=== PATIENT | female | born 1955 | race Caucasian/White ===

== ENCOUNTER → 2022-06-21 | Outpatient (CLI) | payer MEDICARE | LOC: RAD 11:54 | PROVIDERS: ATTEND Family Medicine | DX: R94.31 Abnormal electrocardiogram [ECG] [EKG] (principal) | CPT/HCPCS: 93306 ==

== ENCOUNTER 2022-07-26 09:35 | Observation (INO) | payer MEDICARE ==
[2022-07-25 08:51] LABS: BASOPHILS # (AUTO) 0.1 (0.0-0.1); BASOPHILS % 0.7 % (0.0-1.0); EOSINOPHILS # (AUTO) 0.1 (0.0-0.4); EOSINOPHILS % 1.1 % (0.0-6.0); HEMATOCRIT 43.1 % (34.2-44.1); HEMOGLOBIN 14.7 g/dL (12.0-16.0); LYMPHOCYTES # (AUTO) 2.2 (1.0-3.2); LYMPHOCYTES % 22.9 % (18.0-39.1); MEAN CORPUSCULAR HEMOGLOBIN 32.4 pg (28-32); MEAN CORPUSCULAR HGB CONC 34.1 g/dL (31-35); MEAN CORPUSCULAR VOLUME 94.9 fL (81-99); MONOCYTES # (AUTO) 0.7 (0.2-0.8); MONOCYTES % 6.7 % (4.4-11.3); NEUTROPHILS # (AUTO) 6.7 (2.1-6.9); NEUTROPHILS % 68.3 % (38.7-80.0); PLATELET COUNT 404 x10e3/uL (140-360); RED BLOOD COUNT 4.54 x10e6/uL (3.6-5.1); RED CELL DISTRIBUTION WIDTH 13.2 % (11.7-14.4)
[2022-07-25 09:08] LABS: ANION GAP 13.6 mmol/L (8-16); CALCIUM 9.4 mg/dL (8.4-10.2); CREATININE, SERUM 1.13 mg/dL (0.57-1.11); POTASSIUM 4.6 mmol/L (3.5-5.1)
[~2022-07-26] VITALS: Ht 157.5 cm; Wt 66.3 kg
[~2022-07-26 09:35] MED LIST: ALLERGY DROPS SL; CARVEDILOL3.125 MG PO; CBD OIL SL; CETIRIZINE HCL10 MG PO; HYDROXYZIN10 MG/5 ML PO; MULTI-VITAMIN1 EACH PO; OLMESARTAN-HCT1 EAC1 PO; ROPIVACAINE 246.25 MG, EPINEPHRINE HCL 1:1000 1ML 0.5 MG, CLONIDINE HCL 0.08 MG, KETORO... INJ ONE; TYLENOL325 MG PO
[2022-07-26] MEDS ORDERED: DEXAMETHASONE SOD PHOS 10 MG/1 ML VIAL ONE (09:50)
[2022-07-26] MEDS ORDERED: CELECOXIB 200 MG CAP ONE (09:50)
[2022-07-26] MEDS ORDERED: LACTATED RINGER'S 1,000 ML ONE (09:51)
[2022-07-26] MEDS ORDERED: GABAPENTIN 300 MG CAP ONE (09:51)
[2022-07-26] MEDS ORDERED: ROPIVACAINE 0.5% 5 MG/ML 30 ML SDV ONE (10:28)
[2022-07-26] MEDS ORDERED: TRANEXAMIC ACID 20 ML ONE (10:36)
[2022-07-26] MEDS ORDERED: SODIUM CHLORIDE 0.9% 500ML 500 ML ONE (10:36)
[2022-07-26] MEDS ORDERED: Vancomycin IV 1,000 MG ONE (10:52)
[2022-07-26] MEDS ORDERED: HYDROCODONE/APAP 7.5MG-325MG 1 EA TAB PO PRN (12:30)
[2022-07-26] MEDS ORDERED: DIPHENHYDRAMINE HCL INJ 50 MG/ML VIAL IV PRN (12:30)
[2022-07-26] MEDS ORDERED: DOCUSATE SODIUM 100 MG CAP PO PRN (12:30)
[2022-07-26] MEDS ORDERED: ONDANSETRON HCL INJ 2MG/ML 2ML 2 MG/ML VIAL IV PRN (12:30)
[2022-07-26] MEDS ORDERED: SODIUM CHLORIDE 0.9% 100 ML ONE (12:46)
[2022-07-26] MEDS: FENTANYL CITRATE/PF 100MCG/2 ML INJ ONE ×2 (13:00→13:15)
[2022-07-26] MEDS ORDERED: SEVOFLURANE INHAL SOLN 250 ML PEN BTL ONE (13:02)
[2022-07-26] MEDS ORDERED: GLYCOPYRROLATE INJ 0.2 MG/ML VIAL ONE (13:02)
[2022-07-26] MEDS ORDERED: POVIDONE IODINE 0.05% 0.05 % ML PO ONE (13:02)
[2022-07-26] MEDS ORDERED: PROPOFOL IV EMULSION 10 MG/ML 20 ML VIAL ONE (13:02)
[2022-07-26] MEDS ORDERED: PHENYLEPHRINE HCL 1% 10 MG/ML VIAL ONE (13:02)
[2022-07-26] MEDS ORDERED: ONDANSETRON HCL INJ 2MG/ML 2ML 2 MG/ML VIAL ONE (13:02)
[2022-07-26] MEDS ORDERED: EPHEDRINE SULFATE INJ 50 MG/ML VIAL ONE (13:02)
[2022-07-26] MEDS ORDERED: LIDOCAINE HCL 2% LOCAL INJ 5 ML SDV VIAL INJ ONE (13:02)
[2022-07-26] MEDS ORDERED: ACETAMINOPHEN 1000 MG/100 ML 100 ML IV ONE (13:08)
[2022-07-26] MEDS ORDERED: MIDAZOLAM HCL 2 MG/2 ML VIAL ONE (13:09)
[2022-07-26] MEDS ORDERED: FENTANYL CITRATE/PF 100MCG/2 ML INJ ONE ×3 (13:09→13:32)
[2022-07-26] MEDS ORDERED: ACETAMINOPHEN 1000 MG/100 ML IV ONE (13:40)
[2022-07-26] MEDS: HYDROCODONE/APAP 5MG-325MG TAB PO PRN (13:50)
[2022-07-26] MEDS ORDERED: HYDROCODONE/APAP 5MG-325MG TAB ONE (19:08)
[2022-07-26 19:23] VITALS: BP 127/86; PULSE 93; RESP 18; TEMP 97.6; O2SAT 99
[2022-07-26 20:00] VITALS: BP 127/86; PULSE 93; RESP 17; TEMP 97.6; O2SAT 99
[2022-07-26] MEDS: CELECOXIB 200 MG CAP PO SCH (20:16)
[2022-07-26] MEDS: ASPIRIN 325 MG TAB PO SCH (20:17)
[2022-07-26] MEDS: SODIUM CHLORIDE 0.9% 1000ML 1,000 ML IV SCH ×2 (20:17→22:30)
[2022-07-26] MEDS ORDERED: HYDROXYZINE HCL25 MG PO (22:02)
[2022-07-27] VITALS: BP 100/70; PULSE 93; RESP 18; TEMP 98; O2SAT 100
[2022-07-27 04:00] VITALS: BP 111/73; PULSE 90; RESP 18; TEMP 98.1; O2SAT 97
[2022-07-27] MEDS: HYDROCODONE/APAP 5MG-325MG TAB PO PRN (04:10)
[2022-07-27 06:42] LABS: HEMATOCRIT 35.7 % (34.2-44.1)
[2022-07-27 08:29] VITALS: BP 103/68; PULSE 81; RESP 21; TEMP 98.3; O2SAT 97
[2022-07-27] MEDS: SODIUM CHLORIDE 0.9% 1000ML 1,000 ML IV SCH (08:30)
[2022-07-27 08:55] VITALS: BP 103/68; PULSE 81; RESP 21; TEMP 98.3; O2SAT 97
[2022-07-27] MEDS: CELECOXIB 200 MG CAP PO SCH (10:01)
[2022-07-27] MEDS: ASPIRIN 325 MG TAB PO SCH (10:01)
[2022-07-27] MEDS ORDERED: ONDANSETRON HCL 4 MG ORAL DISINTEGRATING TAB PO PRN (12:15)
[2022-07-27] MEDS ORDERED: ACETAMINOPHEN 1000 MG/100 ML IV PRN (12:30)
[2022-07-27 12:45] VITALS: BP 117/67; PULSE 74; RESP 21; TEMP 98.4; O2SAT 100
== END 2022-07-27 15:18 | disposition home or self-care (01) ==
LOC: OR 09:35 → PACU V 12:19 → MED/SURG2 19:23
PROVIDERS: ADMIT Specialist; ATTEND Specialist
DX: M16.12 Unilateral primary osteoarthritis, left hip (principal); I10 Essential (primary) hypertension; E11.9 Type 2 diabetes mellitus without complications; J44.9 Chronic obstructive pulmonary disease, unspecified; F41.9 Anxiety disorder, unspecified; F32.A Depression, unspecified; J30.81 Allergic rhinitis due to animal (cat) (dog) hair and dander; J30.1 Allergic rhinitis due to pollen; Z01.812 Encounter for preprocedural laboratory examination; Z79.899 Other long term (current) drug therapy; Z87.01 Personal history of pneumonia (recurrent); Z87.891 Personal history of nicotine dependence
CPT/HCPCS: 27130; 36415 ×3; 72170; 80048; 82948 ×2; 85014; 85018; 85025; 86850; 86900; 86920; 97110; 97116 ×2; 97161; 97530 ×2; C1713 ×2; C1776 ×3; G0378 ×2; J0131; J0171; J0690 ×2; J1100; J1885; J2001; J2250; J2370; J2405; J2704; J2795; J3010; J3370; J7030 ×2; J7040; J7050; J7121